=== PATIENT | female | born 1960 | race Caucasian/White ===

== ENCOUNTER → 2017-05-26 | Outpatient (CLI) | payer OTHER ==
[~2017-05-26] MED LIST: HYDR12.561 PO; MULT-817 PO; NORG1TAB95 PO
--- NOTE | 2017-05-27 10:00 | RADIOLOGY IMAGING REPORT ---
FACILITY: [facility] PATIENT NAME: MANJULA MO : [id number] MR: [id number] V: [id number] EXAM DATE: [id number] ORDERING PHYSICIAN: TONY NGUYEN TECHNOLOGIST: Judy Avelar PROCEDURE:BILATERAL DIGITAL SCREENING MAMMOGRAM WITH CAD ASSISTED INTERPRETATION & 3D TOMOSYNTHESIS COMPARISON:Prior mammograms 05/17/16, 05/12/15, 04/15/14, 04/19/13, 04/19/12, 04/17/12. INDICATIONS:SCREENING FINDINGS: A small amount of fibroglandular tissue is seen throughout the breasts. The parenchymal pattern has remained stable allowing for difference in mammographic technique & patient positioning. There is no evidence of malignant appearing mass, malignant appearing calcifications or other secondary sign of malignancy in either breast. DIAGNOSTIC CATEGORY 1--NEGATIVE. RECOMMENDATIONS: ROUTINE MAMMOGRAM AND CLINICAL EVALUATION. IMPRESSION: BIRADS 1: Negative No significant abnormality is seen. Dictated by: Brit Montgomery M.D. on 05/26/2017 at 16:24 Transcribed by: BARBIE on 05/27/2017 at 7:32 Approved by: Brit Montgomery M.D. on 05/27/2017 at 9:58 [facility]
== END ==
LOC: MAMO 01:02
PROVIDERS: ATTEND Nurse Practitioner Family
DX: Z12.31 Encounter for screening mammogram for malignant neoplasm of breast (principal)
CPT/HCPCS: 77063; 77067

== ENCOUNTER → 2017-06-01 | Outpatient (REF) ==
[2017-06-01 09:06] LABS: LDL CHOLESTEROL 125 mg/dl
== END ==
DX: Z02.9 Encounter for administrative examinations, unspecified (principal)

== ENCOUNTER → 2018-05-29 | Outpatient (CLI) | payer OTHER ==
--- NOTE | 2018-05-30 08:22 | RADIOLOGY IMAGING REPORT ---
FACILITY: [facility] PATIENT NAME: MANJULA MO : [id number] MR: [id number] V: [id number] EXAM DATE: ORDERING PHYSICIAN: TONY NGUYEN TECHNOLOGIST: Lili Alvarez PROCEDURE:BILATERAL DIGITAL SCREENING MAMMOGRAM WITH CAD ASSISTED INTERPRETATION & 3D TOMOSYNTHESIS COMPARISON:Prior mammograms 05/26/17, 05/17/16, 05/12/15, 04/15/14, 04/19/13, 04/19/12. INDICATIONS:screening FINDINGS: There are scattered areas of fibroglandular density throughout the breasts. The parenchymal pattern has remained stable allowing for difference in mammographic technique & patient positioning. DIAGNOSTIC CATEGORY 1--NEGATIVE. RECOMMENDATIONS: ROUTINE MAMMOGRAM AND CLINICAL EVALUATION. IMPRESSION: BIRADS 1: Negative. No significant abnormality is seen. Dictated by: Brit Montgomery M.D. on 05/29/2018 at 17:18 Transcribed by: BARBIE on 05/30/2018 at 8:17 Approved by: Brit Montgomery M.D. on 05/30/2018 at 8:20 [facility]
== END ==
LOC: MAMO 01:11
PROVIDERS: ATTEND Nurse Practitioner Family
DX: Z12.31 Encounter for screening mammogram for malignant neoplasm of breast (principal)
CPT/HCPCS: 77063; 77067

== ENCOUNTER → 2018-06-06 | Outpatient (REF) ==
[2018-06-06 06:35] LABS: LDL CHOLESTEROL 115 mg/dl
== END ==
DX: Z02.9 Encounter for administrative examinations, unspecified (principal)